=== PATIENT | male | born 1985 | race Caucasian/White ===

== ENCOUNTER 2016-11-23 14:04 | Emergency (ER) | payer OTHER ==
[~2016-11-23 14:04] MED LIST: ATOM40 PO; QUET200T PO
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
[2016-11-23 14:27] LABS: BASOPHILS % (AUTO) 0 % (0-3); EOSINOPHILS % (AUTO) 1 % (0-5); MONOCYTES % (AUTO) 6 % (4-12); Mean Corpuscular Hemoglobin 32.4 pg (27.0-35.0); Mean Corpuscular Volume 95 fL (81-100); NEUTROPHILS % (AUTO) 74 % (40-74); Platelet Count 241 bil/L (150-400)
[2016-11-23] MEDS ORDERED: Ondansetron 2 mg/mL 2 mL Inj IVPUSH ONE (14:30)
[2016-11-23] MEDS ORDERED: HYDROmorphone 0.5 mg/0.5 mL iSecure Syringe IVPUSH PRN (14:40)
[2016-11-23 14:51] LABS: TROPONIN T < 0.010 ug/L (0.0-0.011)
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
[2016-11-23] MEDS ORDERED: oxyCODONE-Acetamin 5-325 mg Tablet PO ONE (16:10)
[2016-11-23] MEDS ORDERED: OXYC1TAB24 PO (16:41)
[2016-11-23 16:56] VITALS: BP 118/69; PULSE 76; RESP 20; O2SAT 99
== END 2016-11-23 16:57 | disposition home or self-care (01) ==
LOC: SED 14:04 → EDUNIT# 14:04 → EDBD 14:04 → SED 16:57
DX: S06.0X0A Concussion without loss of consciousness, initial encounter (principal); S16.1XXA Strain of muscle, fascia and tendon at neck level, initial encounter; S13.4XXA Sprain of ligaments of cervical spine, initial encounter; S43.004A Unspecified dislocation of right shoulder joint, initial encounter; S20.211A Contusion of right front wall of thorax, initial encounter; M54.6 Pain in thoracic spine; V43.52XA Car driver injured in collision with other type car in traffic accident, initial encounter; Y93.9 Activity, unspecified; Y92.410 Unspecified street and highway as the place of occurrence of the external cause; Y99.8 Other external cause status; F17.200 Nicotine dependence, unspecified, uncomplicated
CPT/HCPCS: 36415; 70450; 71010; 71260; 72125; 73060; 74177; 80053; 83735; 84484; 85025; 93005; 96374; 96375; 99291; G0390; J1170; J2405; Q9967

== ENCOUNTER 2016-11-26 18:49 | Emergency (ER) | payer OTHER ==
[~2016-11-26] VITALS: Ht 180.3 cm; Wt 72.7 kg
[~2016-11-26 18:49] MED LIST changes: +OXYC1TAB24 PO
[2016-11-26 19:13] VITALS: BP 124/73; PULSE 76; RESP 16; O2SAT 97
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
[2016-11-26] MEDS ORDERED: CYCL5TAB PO (20:29)
== END 2016-11-26 20:30 | disposition home or self-care (01) ==
LOC: SED 18:49
DX: S13.8XXD Sprain of joints and ligaments of other parts of neck, subsequent encounter (principal); V87.7XXD Person injured in collision between other specified motor vehicles (traffic), subsequent encounter; Y93.89 Activity, other specified; Y99.8 Other external cause status; Y92.410 Unspecified street and highway as the place of occurrence of the external cause; F90.9 Attention-deficit hyperactivity disorder, unspecified type; F31.9 Bipolar disorder, unspecified; F17.200 Nicotine dependence, unspecified, uncomplicated; F12.10 Cannabis abuse, uncomplicated
CPT/HCPCS: 96372; 99283; J1885